=== PATIENT | female | born 1975 | race Caucasian/White ===

== ENCOUNTER → 2016-03-10 | Outpatient (CLI) | payer OTHER ==
[2016-03-10 15:43] LABS: FREE T4 (FREE THYROXINE) 1.1 ng/dL (0.93-1.71)
== END ==
LOC: LAB 09:44
PROVIDERS: ATTEND Physician Assistant Medical
DX: E04.9 Nontoxic goiter, unspecified (principal)
CPT/HCPCS: 84439; 84443; 84481